=== PATIENT | male | born 1945 | race Caucasian/White ===

== ENCOUNTER 2023-11-12 12:42 | Outpatient (AMB) | payer OTHER, SELFPAY ==
--- NOTE | 2023-11-12 12:47 | AM.OFFWIN_ITS ---
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 He says that it is a little bit painful and it is moving up into his wrist. He denies an allergy to bee stings. He denies any feelings of his throat tickling or feeling like his throat is closing up or any trouble breathing. PFSH Social History Patient Tobacco Use Status: Never used Tobacco Review of Systems Const All systems reviewed & are unremarkable except as noted in HPI and below Physical Exam Vital Signs: Last Vital Signs Temp 98.1 F 11/12/23 12:48 Pulse 74 11/12/23 12:48 BP 130/78 11/12/23 12:48 Pulse Ox 98 11/12/23 12:48 Const General: cooperative, healthy appearing, comfortable and no acute distress Orientation/consciousness: patient oriented x3 Limitations: no limitations Resp Effort & Inspection: normal respiratory effort and able to speak in complete sentences Neuro General: patient oriented x3 Extrem Left upper extremity: hand (Dorsal aspect base of 5th digit pinpoint central area w/swelling into digit) Details: normal capillary refill, neuromotor exam normal, neurosensory exam normal and abnormal ROM of finger Details: unable to flex (can flex to about 90 degrees 2/2 swelling) Location: of the 5th digit; no tenderness, no unusual warmth, no lacerations and no ecchymosis Assessment & Plan Assessment & Plan (1) Local reaction to bee sting: Code(s): T63.441A - Toxic effect of venom of bees, accidental (unintentional), initial encounter Qualifiers: Encounter type: initial encounter Injury intent: accidental or unintentional Qualified Code(s): T63.441A - Toxic effect of venom of bees, accidental (unintentional), initial encounter Plan: Gave 25 mg of Benadryl and 20 mg of prednisone in office. Educated patient on local reaction (will max out in 72 hours) versus cellulitis, recommended if the area remains warm and red after 72 hours, he should come back for reexamination for possible antibiotics. Recommended he take Benadryl as needed for the next couple of days, we will also give prednisone to reduce the swelling to increase the range of motion of the 5th digit. Advised if the swelling got worse or he is unable to move that digit, he should go to the emergency department. Plan see above Orders: Orders AMB Prednisone Adult Dose Today T63.441A - Toxic effect of venom of bees, accidental (unintentional), initial encounter AMB Diphenhydramine Adult Dose Today T63.441A - Toxic effect of venom of bees, accidental (unintentional), initial encounter Medications: New diphenhydramine HCl 25 mg PO ONCE 1 tab 0RF allergic reaction T63.441A - Toxic effect of venom of bees, accidental (unintentional), initial encounter prednisone 20 mg PO DAILY 4 tabs 0RF prednisone 20 mg PO ONCE 1 tab 0RF allergic reaction T63.441A - Toxic effect of venom of bees, accidental (unintentional), initial encounter Coding Level of Care Code New Pt Level 4 (37653) Diagnoses Local reaction to bee sting, accidental or unintentional, initial encounter T63.441A Encounter type: initial encounter Injury intent: accidental or unintentional
[2023-11-12 12:48] VITALS: BP 130/78; PULSE 74; TEMP 36.7; O2SAT 98
== END 2023-11-12 13:38 | disposition home or self-care (01) ==
PROVIDERS: Visit Provider Physician Assistant
DX: T63.441A Toxic effect of venom of bees, accidental (unintentional), initial encounter (principal)
CPT/HCPCS: 99204

== ENCOUNTER 2024-12-19 11:05 | Emergency (ER) | payer OTHER, SELFPAY ==
--- NOTE | ~2024-12-19 | CT_ITS ---
EXAMINATION: CT ABDOMEN AND PELVIS WITHOUT CONTRAST CLINICAL INFORMATION: Flank pain. COMPARISON: None available. TECHNIQUE: Multidetector volumetric imaging was performed from the superior aspect of the liver through the pubic symphysis. Sagittal and coronal reformatted images were obtained on the technologist's workstation. This CT examination was performed using dose optimization techniques as appropriate, variously including the following: *Automated exposure control *Adjustment of mA and/or kV according to patient size (this includes techniques or standardized protocols for targeted exams where dose is matched to indication/reason for exam; i.e. extremities or head) *Use of iterative reconstruction technique. DLP: 382 mGy centimeter. FINDINGS: Limited evaluation of the intra-abdominal solid organs and vascular structures due to lack of IV contrast. LUNG BASES: Linear attenuation abnormality is in the lingula right middle lung lobe and lung bases. LIVER, GALLBLADDER, AND BILIARY TREE: [Liver measures 15 cm. There are multifocal, well-defined, lobulated and round less than 2 cm fluid density lesions throughout the liver parenchyma. Gallbladder is contracted. No pericholecystic fluid collection or gallbladder wall thickening. No intrahepatic or extrahepatic biliary ductal dilatation. PANCREAS: No peripancreatic fluid collections. SPLEEN: 7 cm. ADRENAL GLANDS: No nodular lesion. KIDNEYS AND URETERS: No hydronephrosis. No nephrolithiasis. Multifocal cystic lesions in the right kidney, the largest lesions 2.7 cm. BLADDER: Fluid-filled nearly collapsed. GASTROINTESTINAL TRACT: Numerous diverticula, left hemicolon. Abundant stool throughout the large intestine. No intestinal obstruction pattern. Fecal material in the distal loops. I do not see the appendix. No pericecal edema pattern. Hiatal hernia, small to moderate size. ABDOMINAL WALL: Fat-containing umbilical hernia, small to moderate volume. Fat-containing left inguinal hernia, moderate volume. Small fat-containing right inguinal hernia. LYMPH NODES: No mesenteric or retroperitoneal lymphadenopathy. No specific prominent inguinal lymph nodes. VASCULAR: Mixed plaques throughout the abdominal aorta wall without aneurysm. Calcified plaques in the coronary arteries, descending thoracic aorta, iliac arteries. PELVIC VISCERA: Status post penial prosthesis. A reservoir in the right lower pelvis anterior lateral to the bladder. Status post total prostatectomy. OSSEOUS STRUCTURES: Pectus excavatum. There is a superior endplate compression deformity representing 40% volume loss at L1 without retropulsion. Osteopenia versus the process. Multilevel spondylosis pronounced at L3-4, L4-5 and L5-S1 levels. Levoconvex curvature of the lumbar spine. Degenerative changes in the symphysis pubis CT/CT abdomen pelvis wo IV con IMPRESSION: No hydronephrosis or nephrolithiasis. Subacute to old superior endplate compression fracture deformity at L1 Fat-containing umbilical and inguinal hernias. Diverticular disease without diverticulitis, left hemicolon. Cystic lesions, right kidney. Multiple hepatic cystic lesions.. Fleischner guidelines were followed. Electronically signed by: Clint Aiken MD 12/19/2024 03:37 PM EDT
[2024-12-19 11:34] VITALS: BP 132/89; PULSE 91; RESP 16; TEMP 36.7; O2SAT 97; BMI 23.6
--- NOTE | 2024-12-19 11:35 | ED_ITS ---
HPI - General Adult General Chief complaint: General Medical Stated complaint: Kidney stone, shingles Time Seen by Provider: 12/19/24 14:51 Source: patient and family (patient's ) Mode of arrival: wheelchair Limitations: no limitations History of Present Illness ED Provider: Jacqui Rodriguez PA-C HPI narrative: Patient is a 79 year old assigned male at with a history of shingles, prostate cancer s/p prostatectomy, HLD, and NM (2006), presenting to the emergency department with left low back and flank pain and a new left lower back and left inner thigh rash. Patient states that he has been experiencing left flank pain and left lower back pain that started 6 days ago with associated feelings of incomplete urinary emptying and decreased urine output. Patient states that he was evaluated at urgent care yesterday which prescribed cephalexin due to concern for UTI and referred to [facility] [place] for possible kidney stones. Patient reports urinary incontinence at baseline s/p prostatectomy. Patient denies hematuria, dysuria, dizziness, fevers, chills, changes to bowel function, nausea, or vomiting. Patient states that he woke up this morning and noticed a new rash on his left inner thigh and left lower back that he believes is shingles. Related Data Home Medications ?Medication ?Instructions ?Recorded ?Confirmed metoprolol tartrate 25 mg tablet 25 mg PO BID 11/12/23 rosuvastatin 40 mg tablet 40 mg PO DAILY 11/12/23 Previous Rx's ?Medication ?Instructions ?Recorded prednisone 20 mg tablet 20 mg PO DAILY #4 tabs 11/11 prednisone 20 mg tablet 40 mg (2 x 20 mg) PO DAILY C OPD 12/19/24 exacerbation 5 days #10 tabs valacyclovir 1 gram tablet 1,000 mg PO TID 7 days #21 tabs 12/19/24 Allergies Allergy/AdvReac Type Severity Reaction Status Date / Time No Known Allergies Allergy Verified 12/19/24 11:37 Review of Systems 2 Constitutional: Constitutional: Reports as per HPI Eyes: Eyes: Reports as per HPI ENT: Reports as per HPI Cardiovascular: Cardiovascular: Reports as per HPI Respiratory: Respiratory: Reports as per HPI Gastrointestinal: Gastrointestinal: Reports as per HPI Genitourinary: Genitourinary: Reports as per HPI Musculoskeletal: Musculoskeletal: Reports as per HPI Integumentary/Breasts: Skin/Breast: Reports as per HPI Neurologic: Reports as per HPI Psychiatric: Psychiatric: Reports as per HPI Endocrine: Endocrine: Reports as per HPI Hematologic/Lymphatic: Hematologic/Lymphatic: Reports as per HPI Allergic/Immunologic: Allergic/Immunologic: Reports as per HPI [facility] Past Medical History Attestation statement: The following information was validated with the patient. (all information validated with the patient's ) Source: old records reviewed, obtained from family (patient's provided additional history and confirmed the history provided by the patient. ) and nursing notes reviewed Social History Social History Patient Tobacco Use Status: Never used Tobacco Physical Exam ED Vital Signs: Vital Signs - 24 hr 12/19/24 11:34 12/19/24 14:58 12/19/24 16:43 Temperature 98.1 F 97.3 F Pulse Rate 91 80 80 Respiratory Rate 16 16 16 Blood Pressure 132/89 154/93 H 154/93 H Pulse Oximetry 97 98 98 Oxygen Delivery Method Room Air Room Air Room Air BMI result Body Mass Index 23.6 Const General: cooperative, no acute distress, alert and awake Nutritional Appearance: well nourished Orientation/consciousness: patient oriented x3 HENMT Head: Yes normal to inspection and Yes atraumatic Ears: hearing grossly normal bilaterally and external ears normal General nose exam: Normal external nose present, no nasal discharge noted and no epistaxis Face and sinus: Yes normal facial exam, No abrasion and No laceration Mouth: Normal oral and palatal mucosa present, no drooling and no muffled voice Eyes General: appearance normal, both eyes and all related structures Periorbital: periorbital findings normal Eyelids: Yes eyelids normal Conjunctivae: conjunctivae normal Pupils: Equal, round and reactive pupils present EOM: EOMs intact bilaterally Neck Neck: Yes normal visual inspection and Yes full ROM Resp Effort & Inspection: normal respiratory effort and able to speak in complete sentences GI Inspection: Yes normal to inspection Palpation (GI): Soft to palpation and not firm Auscultation: normal bowel sounds General: Yes CVA tenderness on the left Back/Spine/Pelvis Back: CVA tenderness Skin Other: Neuro General: patient oriented x3, moves all extremities and CN's II-XI intact bilaterally Cranial nerves: Yes Equal, round and reactive pupils present Cognition (Neuro): normal cognition Extrem General: Yes normal to inspection, Yes full ROM and Yes capillary refill normal Psych Appearance: grossly normal Mental Status: mental status grossly normal Affect: normal affect Attitude: cooperative Thought process: Normal thought process present Thought content: Normal thought content present Insight: Good insight present (Psych) Course Course Course Narrative: This is an RME: Additional HPI, ROS, PE not included below will be deferred to primary provider. RME assessment and note performed by: Tamara Lorenzo PA-C This is a 79-year-old male who presents emergency department with concerns of left low back pain since . Saw urgent care yesterday and was referred to Urology. He woke up this morning and noticed a rash noted to his left flank. He does endorse dysuria, able to void with using force, no hematuria. Shingle appearing rash noted to left lower back Plan: Labs, UA, further ER evaluation needed. Medical Decision Making Medical Decision Making [facility] Narrative: Patient is a 79 year old assigned male at with a history of shingles, prostate cancer s/p prostatectomy, HLD, and NM (2006), presenting to the emergency department with left low back and flank pain and a new left lower back and left inner thigh rash. Patient's physical exam was as noted in the physical exam portion of this note and consistent with shingles. Patient's blood work was unremarkable. Patient's urine showed no acute process. Patient's CT abd/pelvis showed no acute process but did show an old L1 compression fracture which the patient confirms he knows about. I explained my physical exam findings as well as all test results to the patient and the patient's . I answered all questions asked by the patient and the patient's . I stressed the importance of the patient taking his medication as directed (either prescribed or as the over the counter packaging recommends). I stressed the importance of the patient following up with his primary care provider. I stressed the importance of the patient returning to the emergency department immediately if his symptoms were to worsen or if he were to develop any dizziness, shortness of breath, difficulty breathing, chest pain, blurry vision, loss of vision, nausea, vomiting, abdominal pain, fever, chills, back pain, or any other complaints. Patient and the patient's verbalized agreement and understanding with this treatment plan and discharge. Differential Diagnosis Differential Diagnoses: The differential diagnosis associated with the presentation includes Shingles Kidney stone UTI Admission/Observation Consideration of admission/observation: Escalation of care including admission/observation considered Patient would have been admitted to the hospital had his work up had any findings where hospital admission was appropriate and his clinical presentation warranted hospital admission. Lab Data [facility] Lab Attestation statement: I reviewed the patient's lab results. My interpretation of these results are in the [facility] Rationale portion of this note. 12/19/24 11:50 12/19/24 11:50 Labs: Lab Results 12/19/24 Range/Units 11:50 WBC 5.4 (4.8-10.8) X10*3/uL RBC 5.11 (4.60-5.80) X10*6/uL Hgb 15.3 (14.0-18.0) g/dl Hct 44.2 (42.0-52.0) % MCV 86.5 (80.0-98.0) fL MCH 29.9 (27.0-33.0) pg MCHC 34.6 (31.0-36.0) g/dl RDW 13.8 (11.0-16.0) % Plt Count 170 (160-400) X10*3/uL MPV 9.1 L (9.4-12.4) fL Immature Gran % (Auto) 0.0 (0.0-0.4) % Neut % (Auto) 49.9 (45-73) % Lymph % (Auto) 36.7 (20-40) % [place] % (Auto) 10.4 (2-11) % Eos % (Auto) 2.4 (0-4) % Baso % (Auto) 0.6 (0-2) % Lymph # (Auto) 2.0 (1.2-4.9) X10*3/uL [place] # (Auto) 0.6 (0.1-1.2) X10*3/uL Eos # (Auto) 0.1 (0.0-0.4) X10*3/uL Baso # (Auto) 0.0 (0.0-0.2) X10*3/uL Abs Immat Gran (auto) 0.00 (0.00-0.03) X10*3/uL Absolute Neuts (auto) 2.7 (2.0-8.3) x10*3/uL Absolute Nucleated RBC 0.000 (0.0-0.012) X10*3/uL Nucleated RBC % (auto) 0.0 (0.0-0.2) /100WBC Sodium 142 (135-145) mmol/L Potassium 4.1 (3.3-5.1) mmol/L Chloride 106 (96-108) mmol/L Carbon Dioxide 29 (22-29) mmol/L Anion Gap 11 L (12-20) BUN 10 (9-16) mg/dL Creatinine 1.06 (0.5-1.4) mg/dL Estim Creat Clear Calc 54.6 Estimated GFR > 60 Random Glucose 80 (60-115) mg/dL Calcium 9.9 (8.4-10.2) mg/dL Total Bilirubin 0.9 (0.0-1.0) mg/dL Direct Bilirubin 0.3 (0.0-0.5) mg/dL AST 27 (5-37) U/L ALT 24 (0-40) U/L Alkaline Phosphatase 80 (39-117) U/L Total Protein 7.4 (6.5-8.0) g/dL Albumin 4.6 (3.5-5.0) g/dL Lipase 40 (8-78) U/L Urine Color Dark Yellow Urine Appearance Clear Urine pH 5.5 (5.0-9.0) Ur Specific [place] 1.020 (1.005-1.025) Urine Protein Negative (Neg-Trace) mg/dL Urine Glucose (UA) Negative (Negative) mg/dL Urine Ketones Negative (Negative) mg/dL Urine Blood Negative (Negative) Urine Nitrite Negative (Negative) Ur Leukocyte Esterase Negative (Negative) Independent Interpretation I performed an independent interpretation of an: CT Scan Interpretation: My interpretation is in agreement with the radiologist's impression of this imaging study. L Reason for Exam: flank pain EXAMINATION: CT ABDOMEN AND PELVIS WITHOUT CONTRAST CLINICAL INFORMATION: Flank pain. COMPARISON: None available. TECHNIQUE: Multidetector volumetric imaging was performed from the superior aspect of the liver through the pubic symphysis. Sagittal and coronal reformatted images were obtained on the technologist's workstation. This CT examination was performed using dose optimization techniques as appropriate, variously including the following: *Automated exposure control *Adjustment of mA and/or kV according to patient size (this includes techniques or standardized protocols for targeted exams where dose is matched to indication/reason for exam; i.e. extremities or head) *Use of iterative reconstruction technique. DLP: 382 mGy centimeter. FINDINGS: Limited evaluation of the intra-abdominal solid organs and vascular structures due to lack of IV contrast. LUNG BASES: Linear attenuation abnormality is in the lingula right middle lung lobe and lung bases. LIVER, GALLBLADDER, AND BILIARY TREE: [Liver measures 15 cm. There are multifocal, well-defined, lobulated and round less than 2 cm fluid density lesions throughout the liver parenchyma. Gallbladder is contracted. No pericholecystic fluid collection or gallbladder wall thickening. No intrahepatic or extrahepatic biliary ductal dilatation. PANCREAS: No peripancreatic fluid collections. SPLEEN: 7 cm. ADRENAL GLANDS: No nodular lesion. KIDNEYS AND URETERS: No hydronephrosis. No nephrolithiasis. Multifocal cystic lesions in the right kidney, the largest lesions 2.7 cm. BLADDER: Fluid-filled nearly collapsed. GASTROINTESTINAL TRACT: Numerous diverticula, left hemicolon. Abundant stool throughout the large intestine. No intestinal obstruction pattern. Fecal material in the distal loops. I do not see the appendix. No pericecal edema pattern. Hiatal hernia, small to moderate size. ABDOMINAL WALL: Fat-containing umbilical hernia, small to moderate volume. Fat- containing left inguinal hernia, moderate volume. Small fat-containing right inguinal hernia. LYMPH NODES: No mesenteric or retroperitoneal lymphadenopathy. No specific prominent inguinal lymph nodes. VASCULAR: Mixed plaques throughout the abdominal aorta wall without aneurysm. Calcified plaques in the coronary arteries, descending thoracic aorta, iliac arteries. PELVIC VISCERA: Status post penial prosthesis. A reservoir in the right lower pelvis anterior lateral to the bladder. Status post total prostatectomy. OSSEOUS STRUCTURES: Pectus excavatum. There is a superior endplate compression deformity representing 40% volume loss at L1 without retropulsion. Osteopenia versus the process. Multilevel spondylosis pronounced at L3-4, L4-5 and L5-S1 levels. Levoconvex curvature of the lumbar spine. Degenerative changes in the symphysis pubis CT/CT abdomen pelvis wo IV con IMPRESSION: No hydronephrosis or nephrolithiasis. Subacute to old superior endplate compression fracture deformity at L1 Fat-containing umbilical and inguinal hernias. Diverticular disease without diverticulitis, left hemicolon. Cystic lesions, right kidney. Multiple hepatic cystic lesions.. Fleischner guidelines were followed. Electronically signed by: Clint Aiken MD 12/19/2024 03:37 PM EDT RP Dictated By: Clint Santillan MD Signed By: Electronically signed by Clint Hernandez MD 12/19/24 1537 Radiology Impression Discussion of test interpretation with radiology: I have reviewed the radiologist's reading. Independent Historian Clinical information obtained from an independent historian. History obtained from or confirmed by: Spouse (patient's provided additional history and confirmed the history provided by the patient. ) Prescription Management I considered prescription management with: Antiviral (patient prescribed an antiviral) Discharge Plan Discharge Clinical Impression: Shing[place]ris Patient Disposition: Home, Self-Care Instructions: Toy (ED) Additional Instructions: IF you are prescribed home medications and/or you are taking over the counter medications at home - it is very important you continue to do so as prescribed / directed unless told otherwise. Follow up with your primary care provider. Return to the emergency department immediately if your symptoms worsen or if you develop any numbness, tingling, dizziness, shortness of breath, difficulty breathing, chest pain, blurry vision, loss of vision, nausea, vomiting, abdominal pain, fever, chills, back pain, or any other complaints. Please see the information below about our Patient Portal. If you are not yet enrolled in the [facility] Patient Portal, you will receive an enrollment email invitation following your visit to any [facility] setting. You may also self-enroll in the Patient Portal by visiting our website: [email or web address] The following information is required to access the Patient Portal: - Your [facility] Medical Record Number - Your personal home email address (must match what is in your electronic medical record, Registration staff can assist with this) - Name - Date of Capabilities of the Patient Portal: - Message some providers - View upcoming appointments - Access your health summary, medical history, and visit history - View current conditions and allergies - View procedure and lab results - View your medications, including guidelines, side effects, and precautions - Complete pre-appointment questionnaires requested by your provider - Ready summary reports of your office visits and procedures To access the Patient Portal Mobile [employer], follow these directions: - Search Packet[employer] in the [employer] Store or Mia[employer] Store - Download the [employer] - Search for [facility] - Enter your login/password Prescriptions: New valacyclovir 1 gram tablet 1,000 mg PO TID 7 Days Qty: 21 0RF prednisone 20 mg tablet 40 mg PO DAILY 5 Days Qty: 10 0RF No Action prednisone 20 mg tablet 20 mg PO ONCE Qty: 1 0RF diphenhydramine HCl 25 mg tablet 25 mg PO ONCE Qty: 1 0RF metoprolol tartrate 25 mg tablet 25 mg PO BID rosuvastatin 40 mg tablet 40 mg PO DAILY prednisone 20 mg tablet 20 mg PO DAILY Qty: 4 0RF Referrals: Paulino Lawson MD [Primary Care Provider, Internal Medicine] Interventions: ED Discharge Assessment Last Done: 12/19/24 16:43 Discharge Date/Time: 12/19/24 16:44 Print Language: Bengali
[2024-12-19 11:58] LABS: MANUAL DIFF FLAG NO
[2024-12-19 12:00] LABS: Appearance Urine Clear; Glucose Urine UA Negative (Negative); PH 5.5 (5.0-9.0); Specific Gravity - Urine 1.020 (1.005-1.025)
[2024-12-19 12:02] LABS: Hematocrit 44.2 % (42.0-52.0); Hemoglobin 15.3 g/dl (14.0-18.0); Imm Gran Abs Auto 0.00 X10*3/uL (0.00-0.03); Imm Gran Pct Auto 0.0 % (0.0-0.4); Lymphocytes Absolute Auto 2.0 X10*3/uL (1.2-4.9); Mean Corpuscular HGB Conc 34.6 g/dl (31.0-36.0); Mean Corpuscular Hemoglobin 29.9 pg (27.0-33.0); Mean Corpuscular Volume 86.5 fL (80.0-98.0); NRBC Abs Auto 0.000 X10*3/uL (0.0-0.012); NRBC Pct Auto 0.0 /100WBC (0.0-0.2); Platelet Count 170 X10*3/uL (160-400); Red Blood Count 5.11 X10*6/uL (4.60-5.80); White Blood Count 5.4 X10*3/uL (4.8-10.8)
[2024-12-19 12:13] LABS: Alanine Aminotransferase 24 U/L (0-40); Albumin Level 4.6 g/dL (3.5-5.0); Alkaline Phosphatase 80 U/L (39-117); Anion Gap 11 (12-20); Aspartate Amino Transferase 27 U/L (5-37); Blood Urea Nitrogen 10 mg/dL (9-16); Calcium 9.9 mg/dL (8.4-10.2); Carbon Dioxide 29 mmol/L (22-29); Chloride 106 mmol/L (96-108); Creatinine Clr Calc Pharmacy 54.6; Estimated Glomerular Filt Rate > 60; Lipase 40 U/L (8-78); Potassium 4.1 mmol/L (3.3-5.1); Sodium 142 mmol/L (135-145); Total Protein 7.4 g/dL (6.5-8.0)
[2024-12-19 14:58] VITALS: BP 154/93; PULSE 80; RESP 16; O2SAT 98
--- NOTE | 2024-12-19 15:00 | PC.NURSE ---
79 M presents to ED with L lower back pain and lower abdomen/groin pain since , difficulty/painful urination. A+OX4, calm, cooperative. Pt is A+OX4, calm, cooperative. Pt ambulates indepedently. Pt denies CP or SOB. RR even and unlabored.
[2024-12-19 16:43] VITALS: BP 154/93; PULSE 80; RESP 16; TEMP 36.3; O2SAT 98
== END 2024-12-19 16:44 | disposition home or self-care (01) ==
PROVIDERS: Physician Assistant Medical; Emergency Provider Emergency Medicine; PCP Internal Medicine
DX: B02.9 Zoster without complications (principal); R10.9 Unspecified abdominal pain; R21 Rash and other nonspecific skin eruption; M54.50 Low back pain, unspecified
CPT/HCPCS: 36415; 74176; 80048; 80076; 81003; 83690; 85025; 99284

== ENCOUNTER → 2024-12-19 15:04 | Outpatient (BNV) | payer OTHER, SELFPAY | PROVIDERS: Emergency Provider Emergency Medicine; PCP Internal Medicine; Visit Provider Radiology Diagnostic Radiology | DX: K57.30 Diverticulosis of large intestine without perforation or abscess without bleeding (principal) | CPT/HCPCS: 74176 ==

== ENCOUNTER 2025-01-04 08:10 | Emergency (ER) | payer MEDICARE, SELFPAY ==
--- NOTE | 2025-01-04 | ECG_ITS ---
Test Reason : chest pain Blood Pressure : */* mmHG Vent. Rate : 71 BPM Atrial Rate : 71 BPM P-R Int : 138 ms QRS Dur : 74 ms QT Int : 394 ms P-R-T Axes : 28 4 58 degrees QTcB Int : 428 ms Normal sinus rhythm Normal ECG No previous ECGs available Referred By: Generic ED Physician Electronically Signed By: KERRY ESTEBAN
--- NOTE | ~2025-01-04 | XR_ITS ---
EXAMINATION: XR ABDOMEN KUB CLINICAL INDICATION: abdominal pain COMPARISON: Correlated to CT dated December 19, 2024 TECHNIQUE: AP view of the abdomen. FINDINGS: Gas throughout nondilated intestine. No air-fluid levels. Vascular clips in the lower pelvic cavity. 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 Radiopaque penile prosthesis. XR/XR KUB IMPRESSION: No intestinal obstruction pattern. Electronically signed by: Clint Aiken MD 01/04/2025 09:27 AM EDT
--- NOTE | ~2025-01-04 | CT_ITS ---
EXAMINATION: CT ABDOMEN AND PELVIS WITH CONTRAST CLINICAL INFORMATION: Epigastric and left lower quadrant pain, guarding. COMPARISON: 12/19/2024. TECHNIQUE: Multidetector volumetric images were obtained from the superior aspect of the liver through the pubic symphysis following administration 85 mL of Omnipaque 350 intravenous contrast. Sagittal and coronal reformatted images were obtained on the technologist's workstation. Oral contrast: No This CT examination was performed using dose optimization techniques as appropriate, variously including the following: *Automated exposure control *Adjustment of mA and/or kV according to patient size (this includes techniques or standardized protocols for targeted exams where dose is matched to indication/reason for exam; i.e. extremities or head) *Use of iterative reconstruction technique FINDINGS: LUNG BASES: Mild subpleural scarring is present in both lung bases, similar to the prior exam. There is a pectus excavatum. The heart size is normal. There are coronary calcifications. LIVER, GALLBLADDER, AND BILIARY TREE: The liver is normal in size, shape, and attenuation. No suspicious focal hepatic lesion or biliary ductal dilatation is present. There are several tiny cysts within the liver, the largest in segment 7 measuring 1.6 cm. These are unchanged. The gallbladder is unremarkable with no evidence of radiopaque gallstones, gallbladder wall thickening, or obvious pericholecystic inflammatory changes. PANCREAS: Unremarkable. SPLEEN: Unremarkable. ADRENAL GLANDS: Unremarkable. KIDNEYS AND URETERS: The kidneys are normal in size, shape, and attenuation. No hydronephrosis, hydroureter, or calculi seen. No perinephric stranding. There are bilateral renal cysts, the largest in the right mid kidney posteriorly measuring 2.7 cm. BLADDER: Completely decompressed, limiting evaluation. No gross abnormality. GASTROINTESTINAL TRACT: There is a small gastric fundal diverticulum. The stomach is otherwise decompressed. The duodenum appears normal. The small bowel is normal in caliber and course. Thickening or inflammation. No CT evidence of acute appendicitis. The colon demonstrates scattered diverticula, with significant diverticulosis in the sigmoid region. No gross wall thickening or inflammation. No rectal abnormality. ABDOMINAL WALL: There are small left greater than right inguinal hernias. There is a small fat-containing umbilical hernia. LYMPH NODES: There is no abnormal lymphadenopathy present. VASCULAR: There is moderate atheromatous calcification of the aorta and iliac arteries. There is no aneurysm. PELVIC VISCERA: There has been a prostatectomy. There are surgical clips along the pelvic sidewalls. There is a penile prosthesis in place. OSSEOUS STRUCTURES: There is no suspicious lytic or blastic bone abnormality. There is a chronic appearing mild superior endplate compression deformity of L1. There are moderate degenerative changes of the lumbar spine with mild levoconvex scoliosis. CT/CT abdomen pelvis w IV con IMPRESSION: 1. There is no acute finding in the abdomen or pelvis. 2. Numerous ancillary findings as discussed in the body of the report, stable from prior exam. Electronically signed by: Noel Chiang MD 01/04/2025 10:39 AM EDT
--- NOTE | 2025-01-04 08:32 | ED.CHESTPAIN ---
HPI - Chest Pain General Chief Complaint: Abdominal Pain Stated Complaint: Chest Pain L Side Pain Time Seen by Provider: 01/04/25 08:24 Source: patient and family () Mode of arrival: ambulatory Limitations: no limitations History of Present Illness ED Provider: JOYCELYN HERNANDEZ PA-C HPI narrative: 79 yo M with PMH significant for prostate cancer s/p prostatectomy >20 yrs ago, HLD, and OR (2006), presents to the ED with his for evaluation of abdominal pain. Patient was evaluated at our facility on 12/19/24 with left-sided back pain that wrapped around to his left abdomen/groin region. Ultimately diagnosed with shingles, prescribed valacyclovir and prednisone. Rash has been steadily resolving, now scabbed over. It was also initially prescribed gabapentin 100 mg for the pain in ED. States that the pain persisted and this was increased to 300 mg TID by his PCP. He has been taking this without improvement, stating that his pain is actually worsening. Patient now reports continued left sided abdominal pain along with new epigastric pain. Reports his stomach feels like it's in knots . He denies nausea or vomiting, but endorses lack of appetite due to 10/10 pain. He denies visible rash to this area. He does have a cardiac history however reports this does not feel similar to his prior OR. His PCP told him in the past he has a hernia in the abdomen, but he is unsure where. He denies visible bulge in the abdomen. Patient has urinary incontinence at baseline d/t prostatectomy. Feels his urinary output has decreased more recently. He does not currently follow with a urologist. He denies dysuria, hematuria. No hx of tobacco use. Also reports constipation despite Miralax. Has firm/infrequent BMs at baseline, but has worsened d/t decreased appetite. He is passing flatus. Denies chest pain, SOB, n/v, diarrhea, fevers or chills, numbness/tingling or saddle anesthesia. Related Data Home Medications ?Medication ?Instructions ?Recorded ?Confirmed metoprolol tartrate 25 mg tablet 25 mg PO BID 11/12/23 rosuvastatin 40 mg tablet 40 mg PO DAILY 11/12/23 Previous Rx's ?Medication ?Instructions ?Recorded prednisone 20 mg tablet 20 mg PO DAILY #4 tabs 11/12/23 prednisone 20 mg tablet 40 mg (2 x 20 mg) PO DAILY COPD 12/19/24 exacerbation 5 days #10 tabs valacyclovir 1 gram tablet 1,000 mg PO TID 7 days #21 tabs 12/19/24 Allergies Allergy/AdvReac Type Severity Reaction Status Date / Time No Known Allergies Allergy Verified 01/04/25 08:37 Review of Systems Review of Systems: Yes all other systems are reviewed and are negative COUNT INCLUDES THE [facility] Past Medical History Attestation statement: The following information was validated with the patient. Source: old records reviewed and nursing notes reviewed Social History Social History Patient Tobacco Use Status: Never used Tobacco Physical Exam Vital Signs: Vital Signs: Last Vital Signs Temp 98.1 F 01/04/25 13:39 Pulse 74 01/04/25 13:39 Resp 16 01/04/25 13:39 BP 119/78 01/04/25 13:39 Pulse Ox 99 01/04/25 13:39 O2 Del Method Room Air 01/04/25 13:39 BMI result Body Mass Index 25.0 vital signs stable, afebrile General: Well appearing, in no acute distress. Skin: scabbed over lesions on erythematous base noted to left lower back, does not cross midline, no open pustules, no drainage Head: Normocephalic, atraumatic. EENT: Hearing is intact b/l. Conjunctiva clear. PERRLA. EOM intact. Moist mucous membranes.? Cardiac: Chest wall symmetric. RRR Lungs: Normal respiratory effort without accessory muscle use. CTA bilaterally Abdomen: soft, nondistended, tender to palpation of entire left abdomen without guarding, no rebound tenderness. Negative Galdamez's sign. active bowel sounds. no palpable abdominal masses. Back: No midline spinous or paraspinal tenderness. No step off deformity. Ext: Upper and lower extremities atraumatic, without tenderness, deformity, swelling or erythema Neuro: AOx3. Normal speech. Ambulating with steady gait. Course Course Course Narrative: CBC without leukocytosis or left shift. No anemia. H&H stable. Chemistry without acute electrolyte abnormalities requiring intervention. No LUZ. Liver function WNL. Total bili slightly elevated to 1.5 of unknown significance. Troponin undetectable. Lipase WNL. Urine without infection. KUB showing constipation, no obstruction CT abdomen/pelvis unremarkable. > symptoms consistent with post herpetic neuralgia. His gabapentin was just recently increased to 300 mg TID. Advised to continue at home. Also advised bowel regimen. He already takes MiraLax, advised Colace in conjunction. Patient has remained stable throughout ED visit today. Discussed worrisome signs and symptoms and when to return to the ED. All questions answered at this time. Patient is agreeable with disposition and stable for discharge. Medications Administered Discontinued Medications Generic Name Dose Route Start Last Admin Trade Name Ashwin PRN Reason Stop Dose Admin Sodium Chloride 1,000 mls @ 999 mls/hr 01/04/25 10:00 01/04/25 11:36 Ns IV 01/04/25 11:00 Infused .Q1H1M LAUREN Infusion Iohexol 100 ml 01/04/25 10:13 01/04/25 10:15 Iohexol 350 Mg/Ml 100 Ml Infus..Btl IV 01/04/25 10:14 85 ml ONCE ONE Administration Morphine Sulfate 4 mg 01/04/25 09:50 01/04/25 10:23 Morphine Sulfate 4 Mg/Ml Cartridge IVPUSH 01/04/25 09:51 4 mg ONCE ONE Administration Protocol Ondansetron HCl 4 mg 01/04/25 09:50 01/04/25 10:23 Ondansetron Hcl 4 Mg/2 Ml Vial IVPUSH 01/04/25 09:51 4 mg ONCE ONE Administration Medical Decision Making Medical Decision Making [facility] Narrative: 79 yo M with PMH significant for prostate cancer s/p prostatectomy >20 yrs ago, HLD, and OR (2006), presents to the ED with his for evaluation of abdominal pain. vital signs stable, afebrile. he is well appearing and in NAD. on exam, no overlying rash/lesions to abdomen. abdomen is soft, nondistended, tender to palpation of entire left abdomen without guarding, no rebound tenderness. Negative Galdamez's sign. active bowel sounds. no palpable abdominal masses. Differential diagnosis includes anemia, electrolyte abnormality, post herpetic neuralgia, shingles, diverticulosis, diverticulitis, pancreatitis, gastritis, gastroenteritis, cholecystitis, constipation, bowel obstruction, atypical appendicitis Plan for screening labs, UA, KUB, pain control and re-evaluation. Differential Diagnosis Differential Diagnoses: The differential diagnosis associated with the presentation includes as above. Admission/Observation not indicated. Lab Data [facility] Lab Attestation statement: I reviewed the patient's lab results. as above. 01/04/25 09:25 01/04/25 09:25 Labs: Lab Results 01/04/25 01/04/25 Range/Units 09:25 12:27 WBC 6.3 (4.8-10.8) X10*3/uL RBC 5.36 (4.60-5.80) X10*6/uL Hgb 16.0 (14.0-18.0) g/dl Hct 45.8 (42.0-52.0) % MCV 85.4 (80.0-98.0) fL MCH 29.9 (27.0-33.0) pg MCHC 34.9 (31.0-36.0) g/dl RDW 14.7 (11.0-16.0) % Plt Count 150 L (160-400) X10*3/uL MPV 8.9 L (9.4-12.4) fL Immature Gran % (Auto) 0.2 (0.0-0.4) % Neut % (Auto) 61.4 (45-73) % Lymph % (Auto) 31.4 (20-40) % [place] % (Auto) 5.9 (2-11) % Eos % (Auto) 0.8 (0-4) % Baso % (Auto) 0.3 (0-2) % Lymph # (Auto) 2.0 (1.2-4.9) X10*3/uL [place] # (Auto) 0.4 (0.1-1.2) X10*3/uL Eos # (Auto) 0.1 (0.0-0.4) X10*3/uL Baso # (Auto) 0.0 (0.0-0.2) X10*3/uL Abs Immat Gran (auto) 0.01 (0.00-0.03) X10*3/uL Absolute Neuts (auto) 3.9 (2.0-8.3) x10*3/uL Absolute Nucleated RBC 0.000 (0.0-0.012) X10*3/uL Nucleated RBC % (auto) 0.0 (0.0-0.2) /100WBC Sodium 140 (135-145) mmol/L Potassium 4.4 (3.3-5.1) mmol/L Chloride 106 (96-108) mmol/L Carbon Dioxide 27 (22-29) mmol/L Anion Gap 11 L (12-20) BUN 16 (9-16) mg/dL Creatinine 1.04 (0.5-1.4) mg/dL Estim Creat Clear Calc 51.9 Estimated GFR > 60 Random Glucose 101 (60-115) mg/dL Calcium 10.1 (8.4-10.2) mg/dL Magnesium 2.3 (1.6-2.6) mg/dL Total Bilirubin 1.5 H (0.0-1.0) mg/dL AST 25 (5-37) U/L ALT 19 (0-40) U/L Alkaline Phosphatase 79 (39-117) U/L Troponin I High Sens < 2.7 (<3.5-35.0) ng/L Total Protein 7.4 (6.5-8.0) g/dL Albumin 4.6 (3.5-5.0) g/dL Lipase 49 (8-78) U/L Urine Color Dark Yellow Urine Appearance Clear Urine pH 5.0 (5.0-9.0) Ur Specific [place] 1.025 (1.005-1.025) Urine Protein Negative (Neg-Trace) mg/dL Urine Glucose (UA) Negative (Negative) mg/dL Urine Ketones 15 (Negative) mg/dL Urine Blood Negative (Negative) Urine Nitrite Negative (Negative) Ur Leukocyte Esterase Negative (Negative) Independent Interpretation I performed an independent interpretation of an: Plain X-Ray and CT Scan Interpretation: KUB showing constipation CT a/p showing constipation, no obstruction Radiology Impression Discussion of test interpretation with radiology: I have reviewed the radiologist's reading. Radiologist Impression: Procedure(s): XR KUB Accession Number(s): [id number] cc: PAULINO LAWSON MD; Joycelyn Hernandez~ Reason for Exam: abdominal pain EXAMINATION: XR ABDOMEN KUB CLINICAL INDICATION: abdominal pain COMPARISON: Correlated to CT dated December 19, 2024 TECHNIQUE: AP view of the abdomen. FINDINGS: Gas throughout nondilated intestine. No air-fluid levels. Vascular clips in the lower pelvic cavity. 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 Radiopaque penile prosthesis. XR/XR KUB IMPRESSION: No intestinal obstruction pattern. Electronically signed by: Clint Aiken MD 01/04/2025 09:27 AM EDT Procedure(s): CT abdomen pelvis w IV con Accession Number(s): [id number] cc: PAULINO LAWSON MD; Joycelyn Hernandez~ Report Number: [id number]: Total DLP = 393.00 mGy-cm Reason for Exam: epigastric/LLQ pain, guarding EXAMINATION: CT ABDOMEN AND PELVIS WITH CONTRAST CLINICAL INFORMATION: Epigastric and left lower quadrant pain, guarding. COMPARISON: 12/19/2024. TECHNIQUE: Multidetector volumetric images were obtained from the superior aspect of the liver through the pubic symphysis following administration 85 mL of Omnipaque 350 intravenous contrast. Sagittal and coronal reformatted images were obtained on the technologist's workstation. Oral contrast: No This CT examination was performed using dose optimization techniques as appropriate, variously including the following: *Automated exposure control *Adjustment of mA and/or kV according to patient size (this includes techniques or standardized protocols for targeted exams where dose is matched to indication/reason for exam; i.e. extremities or head) *Use of iterative reconstruction technique FINDINGS: LUNG BASES: Mild subpleural scarring is present in both lung bases, similar to the prior exam. There is a pectus excavatum. The heart size is normal. There are coronary calcifications. LIVER, GALLBLADDER, AND BILIARY TREE: The liver is normal in size, shape, and attenuation. No suspicious focal hepatic lesion or biliary ductal dilatation is present. There are several tiny cysts within the liver, the largest in segment 7 measuring 1.6 cm. These are unchanged. The gallbladder is unremarkable with no evidence of radiopaque gallstones, gallbladder wall thickening, or obvious pericholecystic inflammatory changes. PANCREAS: Unremarkable. SPLEEN: Unremarkable. ADRENAL GLANDS: Unremarkable. KIDNEYS AND URETERS: The kidneys are normal in size, shape, and attenuation. No hydronephrosis, hydroureter, or calculi seen. No perinephric stranding. There are bilateral renal cysts, the largest in the right mid kidney posteriorly measuring 2.7 cm. BLADDER: Completely decompressed, limiting evaluation. No gross abnormality. GASTROINTESTINAL TRACT: There is a small gastric fundal diverticulum. The stomach is otherwise decompressed. The duodenum appears normal. The small bowel is normal in caliber and course. Thickening or inflammation. No CT evidence of acute appendicitis. The colon demonstrates scattered diverticula, with significant diverticulosis in the sigmoid region. No gross wall thickening or inflammation. No rectal abnormality. ABDOMINAL WALL: There are small left greater than right inguinal hernias. There is a small fat-containing umbilical hernia. LYMPH NODES: There is no abnormal lymphadenopathy present. VASCULAR: There is moderate atheromatous calcification of the aorta and iliac arteries. There is no aneurysm. PELVIC VISCERA: There has been a prostatectomy. There are surgical clips along the pelvic sidewalls. There is a penile prosthesis in place. OSSEOUS STRUCTURES: There is no suspicious lytic or blastic bone abnormality. There is a chronic appearing mild superior endplate compression deformity of L1. There are moderate degenerative changes of the lumbar spine with mild levoconvex scoliosis. CT/CT abdomen pelvis w IV con IMPRESSION: 1. There is no acute finding in the abdomen or pelvis. 2. Numerous ancillary findings as discussed in the body of the report, stable from prior exam. Electronically signed by: Noel Chiang MD 01/04/2025 10:39 AM EDT RP Independent Historian Clinical information obtained from an independent historian. History obtained from or confirmed by: Spouse External Record Review External record reviewed: Inpatient record Prescription Management I considered prescription management with: Other (MiraLax, Colace) Social Determinants Patient?s care significantly limited by Social Determinants of Health including: Other Social Determinant of Health Critical Care Time Critical Care Time Critical Care Time: Yes Total Critical Care Time: 32 Attestation: Critical care time in the amount of 32 minutes has been provided to the patient in terms of direct patient care, frequent reevaluation on IV morphine, review and interpretation of medical data and results, and management of potentially life-threatening conditions. This is all outside of any medical procedures. Discharge Plan Discharge Clinical Impression: Constipation, Post herpetic neuralgia Patient Disposition: Home, Self-Care Instructions: Constipation (ED), Shingles (ED) Additional Instructions: You were evaluated in the ED today for abdominal pain. Your blood work is reassuring. Your urine does not demonstrate infection. The CT scan of your abdomen/pelvis shows that you are constipated. This may be contributing to your discomfort however I believe the majority of your pain is nerve pain secondary to your shingles. Your gabapentin was recently increased from 100-300 3 times daily. It can take a while for this pain medication to start working. This dose does not need to be increased today. I recommend continuing this medication at home for pain. I am also recommending a bowel regimen. Continue miralax at home however I advise you add a stool softener like colace as well. Follow up with PCP. Return with any new or worsening symptoms. In the case of an emergency call 911. Prescriptions: No Action valacyclovir 1 gram tablet 1,000 mg PO TID 7 Days Qty: 21 0RF prednisone 20 mg tablet 40 mg PO DAILY 5 Days Qty: 10 0RF prednisone 20 mg tablet 20 mg PO ONCE Qty: 1 0RF diphenhydramine HCl 25 mg tablet 25 mg PO ONCE Qty: 1 0RF metoprolol tartrate 25 mg tablet 25 mg PO BID rosuvastatin 40 mg tablet 40 mg PO DAILY prednisone 20 mg tablet 20 mg PO DAILY Qty: 4 0RF Referrals: Paulino Lawson MD [Primary Care Provider, Internal Medicine] Interventions: ED Discharge Assessment Last Done: 01/04/25 13:39 Discharge Date/Time: 01/04/25 13:49 Print Language: Lithuanian
[2025-01-04 08:35] VITALS: BP 119/78; PULSE 74; RESP 16; TEMP 36.7; O2SAT 99; BMI 25.0
[2025-01-04 08:38] VITALS: BP 119/78; PULSE 74; RESP 16; TEMP 36.7; O2SAT 99
[2025-01-04 09:32] LABS: Hematocrit 45.8 % (42.0-52.0); Hemoglobin 16.0 g/dl (14.0-18.0); Imm Gran Abs Auto 0.01 X10*3/uL (0.00-0.03); Imm Gran Pct Auto 0.2 % (0.0-0.4); Lymphocytes Absolute Auto 2.0 X10*3/uL (1.2-4.9); MANUAL DIFF FLAG NO; Mean Corpuscular HGB Conc 34.9 g/dl (31.0-36.0); Mean Corpuscular Hemoglobin 29.9 pg (27.0-33.0); Mean Corpuscular Volume 85.4 fL (80.0-98.0); NRBC Abs Auto 0.000 X10*3/uL (0.0-0.012); NRBC Pct Auto 0.0 /100WBC (0.0-0.2); Platelet Count 150 X10*3/uL (160-400); Red Blood Count 5.36 X10*6/uL (4.60-5.80); White Blood Count 6.3 X10*3/uL (4.8-10.8)
[2025-01-04 09:55] LABS: Alanine Aminotransferase 19 U/L (0-40); Albumin Level 4.6 g/dL (3.5-5.0); Alkaline Phosphatase 79 U/L (39-117); Anion Gap 11 (12-20); Aspartate Amino Transferase 25 U/L (5-37); Blood Urea Nitrogen 16 mg/dL (9-16); Calcium 10.1 mg/dL (8.4-10.2); Carbon Dioxide 27 mmol/L (22-29); Chloride 106 mmol/L (96-108); Creatinine Clr Calc Pharmacy 51.9; Estimated Glomerular Filt Rate > 60; Lipase 49 U/L (8-78); Magnesium 2.3 mg/dL (1.6-2.6); Potassium 4.4 mmol/L (3.3-5.1); Sodium 140 mmol/L (135-145); Total Protein 7.4 g/dL (6.5-8.0)
[2025-01-04 10:07] LABS: Troponin-I High Sensitivity < 2.7 ng/L (<3.5-35.0)
[2025-01-04] MEDS: iohexoL 350 MG/ML 100 ML INFUS..BTL IV (10:15)
[2025-01-04 12:44] LABS: Appearance Urine Clear; Glucose Urine UA Negative (Negative); PH 5.0 (5.0-9.0); Specific Gravity - Urine 1.025 (1.005-1.025)
[2025-01-04 13:39] VITALS: BP 119/78; PULSE 74; RESP 16; TEMP 36.7; O2SAT 99
== END 2025-01-04 13:49 | disposition home or self-care (01) ==
PROVIDERS: Physician Assistant Medical; Emergency Provider Emergency Medicine; PCP Internal Medicine
DX: K59.00 Constipation, unspecified (principal); G58.8 Other specified mononeuropathies; R07.89 Other chest pain; R10.22 Pelvic and perineal pain left side; M54.50 Low back pain, unspecified; Z79.899 Other long term (current) drug therapy
CPT/HCPCS: 36415; 74018; 74177; 80053; 81003; 83690; 83735; 84484; 85025; 93005; 96361; 96374; 96375; 99285; J2270; J2405; Q9967

== ENCOUNTER → 2025-01-04 08:23 | Outpatient (BNV) | payer MEDICARE, SELFPAY | PROVIDERS: Emergency Provider Emergency Medicine; PCP Internal Medicine; Visit Provider Internal Medicine | DX: R07.89 Other chest pain (principal) | CPT/HCPCS: 93010 ==

== ENCOUNTER → 2025-01-04 08:56 | Outpatient (BNV) | payer MEDICARE, SELFPAY | PROVIDERS: Emergency Provider Emergency Medicine; PCP Internal Medicine; Visit Provider Radiology Diagnostic Radiology | DX: R10.32 Left lower quadrant pain (principal); K40.20 Bilateral inguinal hernia, without obstruction or gangrene, not specified as recurrent; K57.30 Diverticulosis of large intestine without perforation or abscess without bleeding | CPT/HCPCS: 74018; 74177 ==